=== PATIENT | female | born 1980 | race Hispanic/Latino ===

== ENCOUNTER 2021-03-01 18:46 | Emergency (ER) | payer SELFPAY ==
[~2021-03-01] VITALS: Ht 157.5 cm; Wt 83.5 kg
[2021-03-01 19:15] LABS: BASOPHILS # (AUTO) 0.1 (0.0-0.1); BASOPHILS % 0.5 % (0.0-1.0); EOSINOPHILS # (AUTO) 0.2 (0.0-0.4); HEMATOCRIT 27.8 % (34.2-44.1); HEMOGLOBIN 7.9 g/dL (12.0-16.0); LYMPHOCYTES # (AUTO) 1.4 (1.0-3.2); LYMPHOCYTES % 13.5 % (18.0-39.1); MEAN CORPUSCULAR HEMOGLOBIN 20.3 pg (28-32); MEAN CORPUSCULAR HGB CONC 28.4 g/dL (31-35); MEAN CORPUSCULAR VOLUME 71.3 fL (81-99); MONOCYTES # (AUTO) 0.6 (0.2-0.8); MONOCYTES % 5.8 % (4.4-11.3); NEUTROPHILS # (AUTO) 7.9 (2.1-6.9); NEUTROPHILS % 77.3 % (38.7-80.0); PLATELET COUNT 445 x10e3/uL (140-360)
[2021-03-01 19:35] LABS: ALANINE AMINOTRANSFERASE 46 IU/L (0-55); ALBUMIN 3.5 g/dL (3.5-5.0); ALBUMIN/GLOBULIN RATIO 0.9 (0.8-2.0); ALKALINE PHOSPHATASE 75 IU/L (40-150); ANION GAP 15.7 mmol/L (8-16); BLOOD UREA NITROGEN 11 mg/dL (7-26); BUN/CREATININE RATIO 14 (6-25); CALCIUM 8.5 mg/dL (8.4-10.2); CARBON DIOXIDE 23 mmol/L (22-29); CHLORIDE 103 mmol/L (98-107); CREATINE KINASE 132 IU/L (29-168); CREATININE, SERUM 0.76 mg/dL (0.57-1.11); EST GLOMERULAR FILTRATION RATE > 60 ML/MIN (60-); GLUCOSE 136 mg/dL (74-118); POTASSIUM 3.7 mmol/L (3.5-5.1); SODIUM 138 mmol/L (136-145)
[2021-03-01 19:51] LABS: AMPHETAMINES SCREEN,URINE NEGATIVE (NEGATIVE); BENZODIAZEPINES SCREEN,URINE NEGATIVE (NEGATIVE); CLARITY,URINE HAZY (CLEAR); COLOR,URINE AMBER (YELLOW); KETONES,URINE TRACE (NEGATIVE); LEUKOCYTE ESTERASE ,URINE NEGATIVE (NEGATIVE); NITRITE,URINE NEGATIVE (NEGATIVE); PHENCYCLIDINE SCREEN,URINE NEGATIVE (NEGATIVE); PROTEIN,URINE DIPSTICK >=300 (NEGATIVE); URINE UROBILINOGEN 0.2 mg/dL (0.2 - 1)
[2021-03-01 19:54] LABS: ANISOCYTOSIS SLIGHT; HYPOCHROMASIA SLIGHT; MICROCYTOSIS SLIGHT; PLATELET ESTIMATE ADEQUATE; PLATELET MORPHOLOGY COMMENT NORMAL
[2021-03-01 19:55] LABS: BACTERIA,URINE FEW /HPF; EPITHELIAL CELLS,URINE FEW /LPF; RBC,URINE >50 /HPF (0-5)
[2021-03-01 19:56] LABS: AMORPHOUS SEDIMENT,URINE FEW (FEW); HYALINE CASTS 0-1 (0-1)
[2021-03-01 20:40] LABS: FERRITIN 1.57 ng/mL (4.63-204.00)
== END 2021-03-01 21:47 | disposition home or self-care (01) ==
LOC: ER 18:48
DX: R42 Dizziness and giddiness (principal); D50.9 Iron deficiency anemia, unspecified; N92.6 Irregular menstruation, unspecified; I10 Essential (primary) hypertension
CPT/HCPCS: 36415; 70450; 80053; 80307; 81001; 82550; 82553; 82728; 83540; 84466; 84484; 84702; 85025; 93005; 99284

== ENCOUNTER 2021-04-19 11:11 | Inpatient (IN) | payer OTHER ==
[~2021-04-19] VITALS: Ht 157.5 cm; Wt 84.4 kg
[2021-04-19] MEDS ORDERED: SODIUM CHLORIDE 0.9% 1000ML 1,000 ML IV STA (12:11)
[2021-04-19 12:59] LABS: BASOPHILS % 0.4 % (0.0-1.0); EOSINOPHILS # (AUTO) 0.2 (0.0-0.4); EOSINOPHILS % 1.6 % (0.0-6.0); LYMPHOCYTES # (AUTO) 1.7 (1.0-3.2); LYMPHOCYTES % 16.2 % (18.0-39.1); MEAN CORPUSCULAR HEMOGLOBIN 25.4 pg (28-32); MEAN CORPUSCULAR HGB CONC 28.5 g/dL (31-35); MEAN CORPUSCULAR VOLUME 89.3 fL (81-99); MONOCYTES # (AUTO) 0.9 (0.2-0.8); MONOCYTES % 8.5 % (4.4-11.3); NEUTROPHILS # (AUTO) 7.6 (2.1-6.9); NEUTROPHILS % 71.5 % (38.7-80.0); PLATELET COUNT 311 x10e3/uL (140-360); RED BLOOD COUNT 2.24 x10e6/uL (3.6-5.1); RED CELL DISTRIBUTION WIDTH 23.2 % (11.7-14.4)
[2021-04-19 13:14] LABS: INR 0.92; PARTIAL THROMBOPLASTIN TIME 26.8 seconds (23.8-35.5); PROTHROMBIN TIME 12.9 seconds (11.9-14.5)
[2021-04-19 13:20] LABS: HEMOGLOBIN 5.7 g/dL (12.0-16.0)
[2021-04-19 13:26] LABS: ALBUMIN 3.2 g/dL (3.5-5.0); ALBUMIN/GLOBULIN RATIO 1.1 (0.8-2.0); CALCIUM 8.1 mg/dL (8.4-10.2); CREATININE, SERUM 0.71 mg/dL (0.57-1.11)
[2021-04-19] MEDS ORDERED: SODIUM CHLORIDE 0.9% 250ML 250 ML IV ONE (13:30)
[2021-04-19] MEDS ORDERED: MORPHINE SULFATE INJ 2 MG/ML SYR IV PRN (14:45)
[2021-04-19] MEDS ORDERED: SODIUM CHLORIDE 0.9% 1000ML 1,000 ML IV SCH (14:45)
[2021-04-19] MEDS ORDERED: ONDANSETRON HCL INJ 2MG/ML 2ML 2 MG/ML VIAL IV PRN (14:45)
[2021-04-19 15:29] LABS: CLARITY,URINE TURBID (CLEAR); COLOR,URINE RED (YELLOW); KETONES,URINE NEGATIVE (NEGATIVE); LEUKOCYTE ESTERASE ,URINE TRACE (NEGATIVE); NITRITE,URINE POSITIVE (NEGATIVE); PROTEIN,URINE DIPSTICK >=300 (NEGATIVE); URINE UROBILINOGEN 0.2 mg/dL (0.2 - 1)
[2021-04-19 15:30] LABS: AMORPHOUS SEDIMENT,URINE MODERATE (FEW); BACTERIA,URINE MODERATE /HPF; EPITHELIAL CELLS,URINE MODERATE /LPF; RBC,URINE >50 /HPF (0-5)
[2021-04-19 16:35] VITALS: BP 103/55
[2021-04-19 16:55] VITALS: BP 103/55
[2021-04-19] MEDS ORDERED: FEROSUL325 MG PO (17:03)
[2021-04-19] MEDS ORDERED: AMLODIPINE BESYL5 MG PO (17:03)
[2021-04-19] MEDS ORDERED: SODIUM CHLORIDE 0.9% 250ML 250 ML ONE (17:15)
[2021-04-19] MEDS ORDERED: ACETAMINOPHEN 325 MG TAB PO ONE (19:00)
[2021-04-19 20:00] VITALS: BP 114/54
[2021-04-19 21:00] VITALS: BP 114/54
[2021-04-20] VITALS (7 sets, daily range): BP systolic 101–150; BP diastolic 56–90
[2021-04-20] MEDS ORDERED: SODIUM CHLORIDE 0.9% 1000ML 1,000 ML ONE (03:44)
[2021-04-20 05:19] LABS: BASOPHILS % 0.5 % (0.0-1.0); EOSINOPHILS # (AUTO) 0.2 (0.0-0.4); EOSINOPHILS % 2.7 % (0.0-6.0); HEMATOCRIT 24.7 % (34.2-44.1); HEMOGLOBIN 7.6 g/dL (12.0-16.0); LYMPHOCYTES # (AUTO) 1.7 (1.0-3.2); MEAN CORPUSCULAR HEMOGLOBIN 27.4 pg (28-32); MEAN CORPUSCULAR HGB CONC 30.8 g/dL (31-35); MEAN CORPUSCULAR VOLUME 89.2 fL (81-99); MONOCYTES # (AUTO) 0.7 (0.2-0.8); MONOCYTES % 8.3 % (4.4-11.3); NEUTROPHILS # (AUTO) 5.3 (2.1-6.9); NEUTROPHILS % 65.4 % (38.7-80.0); PLATELET COUNT 220 x10e3/uL (140-360); RED BLOOD COUNT 2.77 x10e6/uL (3.6-5.1); RED CELL DISTRIBUTION WIDTH 18.1 % (11.7-14.4)
[2021-04-20 05:50] LABS: ALBUMIN 2.7 g/dL (3.5-5.0); ANION GAP 9.7 mmol/L (8-16); CALCIUM 7.7 mg/dL (8.4-10.2); CREATININE, SERUM 0.6 mg/dL (0.57-1.11); POTASSIUM 3.7 mmol/L (3.5-5.1)
[2021-04-20] MEDS: FERROUS SULFATE 325 MG TAB PO SCH (09:09)
[2021-04-20 14:04] LABS: HEMOGLOBIN 7.8 g/dL (12.0-16.0)
[2021-04-20] MEDS ORDERED: MEDROXYPROGESTERONE ACETATE 150 MG/ML VIAL IM ONE (20:30)
[2021-04-20] MEDS: HYDROCODONE/APAP 7.5MG-325MG 1 EA TAB PO PRN (23:15)
[2021-04-21] VITALS (8 sets, daily range): BP systolic 101–123; BP diastolic 56–67
[2021-04-21 06:28] LABS: HEMATOCRIT 23.5 % (34.2-44.1); HEMOGLOBIN 7.2 g/dL (12.0-16.0)
[2021-04-21] MEDS: FERROUS SULFATE 325 MG TAB PO SCH (08:52)
[2021-04-21] MEDS ORDERED: DIPHENHYDRAMINE HCL INJ 50 MG/ML VIAL IV STA (08:56)
[2021-04-21] MEDS ORDERED: ACETAMINOPHEN 325 MG TAB PO STA (08:56)
[2021-04-21] MEDS ORDERED: SODIUM CHLORIDE 0.9% 250ML 250 ML IV ONE (09:00)
[2021-04-21] MEDS ORDERED: MIDAZOLAM HCL 2 MG/2 ML VIAL ONE (12:15)
[2021-04-21] MEDS ORDERED: FENTANYL CITRATE/PF 100MCG/2 ML INJ ONE (12:15)
[2021-04-21] MEDS ORDERED: DIPHENHYDRAMINE HCL INJ 50 MG/ML VIAL ONE (13:47)
[2021-04-21] MEDS ORDERED: SODIUM CHLORIDE 0.9% 250ML 250 ML ONE ×2 (13:48→21:47)
[2021-04-21] MEDS: HYDROCODONE/APAP 7.5MG-325MG 1 EA TAB PO PRN ×3 (13:52→22:25)
[2021-04-21] MEDS ORDERED: DEXAMETHASONE SOD PHOS INJ 4 MG/ML VIAL ONE (19:16)
[2021-04-21] MEDS ORDERED: ONDANSETRON HCL INJ 2MG/ML 2ML 2 MG/ML VIAL ONE (19:16)
[2021-04-21] MEDS ORDERED: LIDOCAINE HCL 2% LOCAL INJ 5 ML SDV VIAL INJ ONE (19:16)
[2021-04-21] MEDS ORDERED: POVIDONE IODINE 0.05% 0.05 % ML PO ONE (19:16)
[2021-04-21] MEDS ORDERED: SEVOFLURANE INHAL SOLN 250 ML PEN BTL ONE (19:16)
[2021-04-21] MEDS ORDERED: PROPOFOL IV EMULSION 10 MG/ML 20 ML VIAL ONE (19:16)
[2021-04-22] VITALS (9 sets, daily range): BP systolic 105–145; BP diastolic 64–90
[2021-04-22] MEDS: HYDROCODONE/APAP 7.5MG-325MG 1 EA TAB PO PRN ×4 (03:48→23:00)
[2021-04-22 05:30] LABS: HEMATOCRIT 30.2 % (34.2-44.1); HEMOGLOBIN 9.5 g/dL (12.0-16.0)
[2021-04-22] MEDS: FERROUS SULFATE 325 MG TAB PO SCH (08:56)
[2021-04-22 12:36] LABS: HEMOGLOBIN 10.1 g/dL (12.0-16.0)
[2021-04-22 18:01] LABS: HEMATOCRIT 32.1 % (34.2-44.1); HEMOGLOBIN 9.9 g/dL (12.0-16.0)
[2021-04-23] VITALS (8 sets, daily range): BP systolic 113–140; BP diastolic 67–90
[2021-04-23] MEDS ORDERED: SENNOSIDES 8.6 MG TAB PO SCH (03:30)
[2021-04-23] MEDS: HYDROCODONE/APAP 7.5MG-325MG 1 EA TAB PO PRN ×2 (03:34→18:53)
[2021-04-23] MEDS ORDERED: ONDANSETRON HCL 4 MG ORAL DISINTEGRATING TAB PO PRN (07:30)
[2021-04-23 07:33] LABS: HEMOGLOBIN 9.9 g/dL (12.0-16.0)
[2021-04-23] MEDS: FERROUS SULFATE 325 MG TAB PO SCH (07:56)
[2021-04-23] MEDS ORDERED: LYSTEDA650 MG PO (14:09)
== END 2021-04-23 20:48 | disposition home or self-care (01) | DRG 744 ==
LOC: ER 12:19 → ERHOLD 14:47 → MED/SURG3 16:25 → OBSVTOIN 04-21 09:04
PROVIDERS: ADMIT Internal Medicine; ATTEND Internal Medicine
PROC: 30233N1 Transfusion of Nonautologous Red Blood Cells into Peripheral Vein, Percutaneous Approach (ICD-10-PCS; 2021-04-19)
PROC: 0UDB8ZZ Extraction of Endometrium, Via Natural or Artificial Opening Endoscopic (ICD-10-PCS; principal; 2021-04-21 11:30)
DX: N92.0 Excessive and frequent menstruation with regular cycle (principal); N39.0 Urinary tract infection, site not specified; I10 Essential (primary) hypertension; D64.9 Anemia, unspecified
CPT/HCPCS: 36415; 76856; 80053; 81001; 84702; 85014; 85018; 85025; 85610; 85730; 86850; 86900; 86920; 88305; 99284; G0378; J1100; J1200; J2001; J2250; J2270; J2405; J3010; J7030; J7050; P9016; U0002